=== PATIENT | male | born 2000 | race Two or more races ===

== ENCOUNTER 2023-08-11 14:33 | Emergency (ER) | payer OTHER ==
[~2023-08-11] VITALS: Ht 165.1 cm; Wt 78.4 kg
[2023-08-11] MEDS ORDERED: CYCL-837 PO (18:23)
[2023-08-11 20:22] VITALS: BP 137/87; PULSE 78; RESP 17; TEMP 98.6; O2SAT 98
== END 2023-08-11 20:23 | disposition home or self-care (01) ==
LOC: ER 14:33
DX: M25.511 Pain in right shoulder (principal); R51.9 Headache, unspecified; V49.9XXA Car occupant (driver) (passenger) injured in unspecified traffic accident, initial encounter; W22.10XA Striking against or struck by unspecified automobile airbag, initial encounter; Y93.89 Activity, other specified; Y92.488 Other paved roadways as the place of occurrence of the external cause; Y99.8 Other external cause status
CPT/HCPCS: 73060